=== PATIENT | male | born 1985 | race Two or more races ===

== ENCOUNTER 2025-01-24 10:23 | Outpatient (CLI) | payer MEDICARE, MEDICAID | END 2025-01-24 10:24 | disposition home or self-care (01) | LOC: CSHSLEEP 10:23 | PROVIDERS: ATTEND Family Medicine | DX: G47.33 Obstructive sleep apnea (adult) (pediatric) (principal); R53.83 Other fatigue; R09.89 Other specified symptoms and signs involving the circulatory and respiratory systems; E66.9 Obesity, unspecified; Z68.33 Body mass index [BMI] 33.0-33.9, adult; R06.83 Snoring; G47.00 Insomnia, unspecified | CPT/HCPCS: 95811 ==